=== PATIENT | female | born 1955 ===

== ENCOUNTER → 2021-12-27 08:00 | Outpatient (CLI) | payer OTHER ==
[~2021-12-27] VITALS: Ht 157.5 cm; Wt 72.6 kg
[~2021-12-27 08:00] MED LIST: CHILDREN'S ASPI81 MG PO
== END | disposition home or self-care (01) ==
LOC: LAB 08:00 → EDSTATUS 12-29 12:15 → SURH 12-29 12:15
PROVIDERS: ATTEND Obstetrics & Gynecology Gynecologic Oncology
DX: C54.1 Malignant neoplasm of endometrium (principal); Z20.822 Contact with and (suspected) exposure to COVID-19; Z03.818 Encounter for observation for suspected exposure to other biological agents ruled out; R97.1 Elevated cancer antigen 125 [CA 125]; D64.9 Anemia, unspecified; N39.0 Urinary tract infection, site not specified; I10 Essential (primary) hypertension